=== PATIENT | female | born 1950 | race Caucasian/White ===

== ENCOUNTER → 2020-04-14 14:00 | Outpatient (BNVA) | payer MEDICARE, SELFPAY | PROVIDERS: Family Provider Physician Assistant Medical; Referring Provider Physician Assistant Medical; Visit Provider Podiatrist Foot & Ankle Surgery | DX: M79.672 Pain in left foot (principal) | CPT/HCPCS: 73630 ==

== ENCOUNTER 2020-05-27 15:25 | Outpatient (CLI) | payer MEDICARE, SELFPAY | END 2020-05-27 15:26 | disposition home or self-care (01) | LOC: SPT 15:26 | PROVIDERS: Family Provider Physician Assistant Medical; Visit Provider Podiatrist Foot & Ankle Surgery | DX: Z46.89 Encounter for fitting and adjustment of other specified devices (principal); M19.072 Primary osteoarthritis, left ankle and foot | CPT/HCPCS: 97760; L3030 ==

== ENCOUNTER 2021-09-30 09:29 | Outpatient (CLI) | payer MEDICARE, SELFPAY ==
[2021-09-30 10:06] VITALS: BMI 29.2
--- NOTE | 2021-09-30 10:07 | ECG_ITS ---
[facility] Test Date: 2021-09-30 Pat Name: Bjorn Sylvester Department: Room: Gender: Female Snap Shearer: : 1950 Requested By: Nancy Jorge Order Number: [id number] Huggins MD: Sherice Caldwell M.D. Interpretive Statements NAME OF STUDY: EXERCISE SESTAMIBI STRESS TEST INDICATION: Chest Pain Baseline blood pressure of 150/93 mm Hg, heart rate of 96 beats per minute and oxygen saturation 95%. EKG showed normal sinus rhythm, left axis deviation with isolated PVCs with normal ST-Ts. The patient exercised for 3 minutes 30 seconds on a standard Alberto protocol. Patient attained a maximum heart rate of 154 beats per minute(103% of the maximum predicted heart rate) with a blood pressure at the peak exercise of 163/88 mm Hg and oxygen saturation 94%. The EKG at the peak exercise revealed sinus tachycardia with no significant ST-T wave changes. Patient did not have any chest pain or any significant arrhythmis with the exercise. The study was terminated due to maximal effort. During the recovery phase, there were no new changes. Blood pressure at the end of the recovery phase was 148/93 mm Hg with a heart rate of 101 beats per minute and oxygen saturation 97%. Frequent isolated PVCs noted during exercise and in recovery. CONCLUSION: 1. Normal EKG response to treadmill exercise. 2. No exercise-induced chest pain or cardiac arrhythmia. 3. Decreased exercise tolerance, attained a maximum of 7 METs. Maximum VO2 of 24.5 mL/kg/min. 4. Baseline hypertension with normal response to exercise. 5. Perfusion scan will be documented separately. Electronically Signed On 10-04-2021 16:45:31 [facility] by Sherice Caldwell M.D. [email or web address]
--- NOTE | 2021-09-30 10:08 | NMCV_ITS ---
NM allison perf SPECT r/s* [id number] Bjorn Sylvester Age: 71 Gender: F : 1950 Exam Date: 09/30/2021 10:08 Ordering Phys: Nancy Jorge Technologist: PAUL Manley Exam Location: [facility] Indications: FATIGUE STRESS TEST Please see separate stress test report in [facility] for full findings IMAGE PROTOCOL Rest/Stress 1 Exercise Day Radiopharmaceutical Dose (mCi) Administration Site Administered by Rest: Tc-99m 10.7 IV PAUL Manley Sestamibi Stress:Tc-99m 32.8 IV PAUL Lorenzo Sestamibi Rest: 30-Sep-2021 60 Discovery 630 Stress: 30-Sep-2021 15 Discovery 630 Images obtained in supine and prone position. Radiopharmaceutical was injected at 95 % maximum heart rate. SPECT RESULTS Technical Quality: Excellent Raw Data Analysis: Normal Image Corrections: No attenuation or motion correction applied Summed Stress Score: 1 Summed Rest Score: 2 Summed Difference Score: 0 PERFUSION FINDINGS SPECT images demonstrate homogeneous tracer distribution throughout the myocardium. FUNCTIONAL RESULTS (calculated via Gated SPECT) Stress Image LV EF (%): 80 Stress EDV (mL):69 TID: 0.77 Stress ESV (mL):14 FUNCTIONAL FINDINGS: The left ventricle is normal in size. Transient Ischemia Dilatation of 0.77. There is normal left ventricular systolic function. The left ventricular ejection fraction is normal with a value of 80%. There is normal left ventricular wall thickening with no regional wall motion abnormality. Normal end-diastolic and end-systolic volumes. IMPRESSIONS 1. Myocardial perfusion imaging is normal. 2. Overall left ventricular systolic function is normal without regional wall motion abnormalities. 3. The left ventricular ejection fraction is hyperdynamic with a value of 80%. 4. EKG portion of the study will be reported separately. 5. No prior similar studies to compare. Sherice Caldwell MD (Electronically Signed) Final Date: 01 October 2021 18:55 S
[2021-09-30 12:46] VITALS: BP 115/76; PULSE 99
== END 2021-09-30 09:30 | disposition home or self-care (01) ==
PROVIDERS: PCP Registered Nurse; Visit Provider Registered Nurse
DX: R07.9 Chest pain, unspecified (principal); R53.83 Other fatigue; I10 Essential (primary) hypertension
CPT/HCPCS: 78452; 93017; A9500

== ENCOUNTER 2023-01-13 11:23 | Outpatient (CLI) | payer MEDICARE, SELFPAY ==
--- NOTE | 2023-01-13 11:33 | MM_ITS ---
WS: [id number] BILATERAL 3D TOMOSYNTHESIS DIGITAL SCREENING MAMMOGRAPHY WITH CAD CLINICAL INFORMATION: SCREENING HISTORY: Screening mammogram. No current complaints. COMPARISON: 2020 TECHNIQUE: Bilateral CC and MLO views. FINDINGS: The breasts are composed of heterogeneous fibroglandular density tissue, which can limit the detectio n of small underlying mass lesions. No suspicious mass, asymmetry, calcifications, or architectural d istortion. No evidence of malignancy. Punctate and lucent centered calcifications. MM/[place] [id number] IMPRESSION: BI-RADS: 2-Benign FOLLOW UP: 1 Year Follow-up Recommend return to annual screening mammography.
== END 2023-01-13 11:24 | disposition home or self-care (01) ==
LOC: RAD 11:31
PROVIDERS: PCP Registered Nurse; Visit Provider Registered Nurse
DX: Z12.31 Encounter for screening mammogram for malignant neoplasm of breast (principal)
CPT/HCPCS: 77063; 77067

== ENCOUNTER 2023-12-30 16:06 | Emergency (ER) | payer MEDICARE, SELFPAY ==
[2023-12-30 16:10] VITALS: BP 126/107; PULSE 73; RESP 16; TEMP 36.7; O2SAT 90
--- NOTE | 2023-12-30 16:22 | XRR_ITS ---
PROCEDURE INFORMATION: Exam: XR Left Shoulder Exam date and time: 12/30/2023 4:46 PM Age: 73 years old Clinical indication: Injury or trauma; Fall; Blunt trauma (contusions or hematomas); Shoulder; Left; Additional info: Fall/shoulder pain TECHNIQUE: Imaging protocol: Radiologic exam of the left shoulder. Views: 2 or more views. COMPARISON: CR XR chest 1V portable [id number] 12/30/2023 4:46 PM FINDINGS: Bones/joints: Slightly angulated comminuted fracture through the head and neck of the proximal left humerus. Mild acromioclavicular and glenohumeral spurring.. Soft tissues: Normal. XR/XR shoulder LT min 2V* [id number] IMPRESSION: Fracture of the proximal humerus.
--- NOTE | 2023-12-30 16:23 | CTR_ITS ---
PROCEDURE INFORMATION: Exam: CT Head Without Contrast Exam date and time: 12/30/2023 4:39 PM Age: 73 years old Clinical indication: Injury or trauma; Fall; Blunt trauma (contusions or hematomas); Additional info: Fall/head inj TECHNIQUE: Imaging protocol: Computed tomography of the head without contrast. Radiation optimization: All CT scans at this facility use at least one of these dose optimization techniques: automated exposure control; mA and/or kV adjustment per patient size (includes targeted exams where dose is matched to clinical indication); or iterative reconstruction. COMPARISON: CT cervical spin wo con* [id number] 12/30/2023 4:39 PM RADIATION DOSE METRICS: Total DLP (mGy-cm): 933.3 FINDINGS: Brain: No evidence of intra-axial or extra-axial hemorrhage. No mass effect or midline shift. Quiles-white differentiation is maintained. Basilar cisterns are patent. Cerebral ventricles: No hydrocephalus. Paranasal sinuses: Fluid levels in the maxillary sinuses. Moderate ethmoid sinus mucosal thickening. Mastoid air cells: The visualized mastoids and middle ears are clear. Bones: Unremarkable. No acute fracture. Soft tissues: No gross soft tissue abnormality. CT/CT head wo con* [id number] IMPRESSION: 1. No acute intracranial abnormality. 2. Maxillary sinus fluid levels compatible with sinusitis.
--- NOTE | 2023-12-30 16:23 | CTR_ITS ---
PROCEDURE INFORMATION: Exam: CT Cervical Spine Without Contrast Exam date and time: 12/30/2023 4:39 PM Age: 73 years old Clinical indication: Injury or trauma; Fall; Blunt trauma; Additional info: Fall/head inj/neck pain TECHNIQUE: Imaging protocol: Computed tomography of the cervical spine without contrast. Radiation optimization: All CT scans at this facility use at least one of these dose optimization techniques: automated exposure control; mA and/or kV adjustment per patient size (includes targeted exams where dose is matched to clinical indication); or iterative reconstruction. COMPARISON: CT head wo con* [id number] 12/30/2023 4:39 PM RADIATION DOSE METRICS: Total DLP (mGy-cm): 595.3 FINDINGS: Bones/joints: 2 mm degenerative anterolisthesis of C4 on C5.11 No evidence of acute fracture or subluxation of the cervical spine. The craniocervical junction including the atlantoaxial and atlantooccipital articulations are intact. C2-C3: No central or foraminal stenosis. C3-C4: Uncovertebral hypertrophy and facet arthrosis results in mild left-sided foraminal stenosis. No central stenosis. C4-C5: Uncovertebral hypertrophy and facet arthrosis results in mild right-sided foraminal stenosis. No central stenosis. C5-C6: Right-sided facet arthrosis without central or foraminal stenosis. C6-C7: No central or foraminal stenosis. C7-T1: No central or foraminal stenosis. Lungs: The visualized lung apices are clear. Soft tissues: No gross soft tissue abnormality. No significant prevertebral edema. No evidence of fluid collection or hematoma. CT/CT cervical spin wo con* [id number] IMPRESSION: 1. No evidence of acute fracture or subluxation of the cervical spine.
--- NOTE | 2023-12-30 16:24 | XRR_ITS ---
PROCEDURE INFORMATION: Exam: XR Chest Exam date and time: 12/30/2023 4:46 PM Age: 73 years old Clinical indication: Injury or trauma; Fall; Blunt trauma (contusions or hematomas); Additional info: Fall/trauma TECHNIQUE: Imaging protocol: Radiologic exam of the chest. Views: 1 view. COMPARISON: CR XR shoulder LT min 2V* [id number] 12/30/2023 4:46 PM FINDINGS: Lungs: Unremarkable. No consolidation. Pleural spaces: Unremarkable. No pleural effusion. No pneumothorax. Heart/Mediastinum: Unremarkable. No cardiomegaly. Bones/joints: Fracture of the proximal left humerus. XR/XR chest 1V portable [id number] IMPRESSION: No acute cardiopulmonary disease.
--- NOTE | 2023-12-30 16:25 | ED_ITS ---
Documented by User: ARIEL Cagle 12/30/23 18:40 HPI - Fall General: Chief Complaint: Fall Stated Complaint: FALL Time Seen by Provider: 12/30/23 16:11 Source: patient Mode of arrival: EMS Limitations: no limitations History of Present Illness: Patient is a 73-year-old female who presents to the emergency department via ambulance due to a trip and fall onset prior to arrival. Patient states she was walking down hallway in her house, when she must of tripped over her shoelace and fell to the ground, hitting her left shoulder and left side of her face on the ground. She notes that this broke her glasses and caused an abrasion to her left supraorbital region. She denies losing consciousness or prolonged downtime. She does state that on the way over in the ambulance she started developing neck pain, and was placed in a c-collar. She was given 100 mics of fentanyl as well as Zofran for some ongoing nausea and vomiting. Currently at bedside she states she is still nauseous and her pain is about a 5/10. She states she has pain to her head, neck, and left shoulder. No neurological deficits reported. No visual changes or other concerning signs. MD complaint: fall Onset (ago): minute(s) Fall from: standing Fall witnessed: no Place fall occurred: home Loss of consciousness: None Prolonged down time: no Symptoms prior to fall: none Context: tripped/slipped Location of injury: head, face and neck Location of injury - extremities: Left: shoulder Severity: moderate Severity scale (1-10): 5 Associated symptoms-after fall: Reports headache(s) and neck pain; Denies abdominal pain, chest pain or lightheadedness Review of Systems General: Reports: 10 or more systems reviewed and unremarkable except in HPI and below Const: Reports: other (fall); Denies: fever(s), chills or fatigue Eyes: Denies: change in vision ENMT: Denies: throat pain, ear or mastoid pain or nasal discharge Card: Denies: chest pain, palpitations, swelling of feet/ankles or lightheadedness Resp: Denies: dyspnea, productive cough or wheezing GI: Reports: nausea and vomiting; Denies: abdominal pain, diarrhea or constipation : Denies: flank pain, difficulty voiding, dysuria or urinary frequency Musc: Reports: neck pain and joint pain; Denies: back pain Skin/Breast: Denies: rash Neuro: Reports: headache(s); Denies: numbness in extremities or weakness in extremities PFSH ED PFSH: Medical History Hypertension Hypercholesteremia Surgical History H/O hysterectomy for benign disease Family History Other CAD (coronary artery disease) Cancer Hypertension Denies family history of Diabetes Social History Smoking and tobacco/nicotine status: never used tobacco/nicotine Physical Exam Const: COMMON NORMALS: no acute distress, patient oriented x3, no limitations, healthy appearing and alert GENERAL APPEARANCE: cooperative and comfortable HENMT: COMMON NORMALS: external ears normal and Normal external nose present HEAD & SCALP: no Null's sign and no raccoon eyes FACE & SINUS: abrasion on the left periorbital NOSE: Normal external nose present and Normal septum present EXTERNAL EAR: Yes external ears normal MOUTH: Normal oral and palatal mucosa present and lip normal Eye: COMMON NORMALS: Equal, round and reactive pupils present, EOMs intact bilaterally and conjunctivae normal CONJUNCTIVA: Yes conjunctivae normal PUPIL: Yes Equal, round and reactive pupils present Neck/C-Spine: COMMON NORMALS: supple GENERAL: Yes normal visual inspection CERVICAL SPINE: Yes collar present Chest: COMMONS NORMALS: normal inspection of the chest and normal palpation of entire chest wall Resp: COMMON NORMALS: normal respiratory effort, No retractions, No use of accessory muscles and clear to auscultation bilaterally AUSCULTATION: clear to auscultation bilaterally Cardio: COMMON NORMALS: regular rate, regular rhythm, S1 normal heart sound present, S2 normal heart sound present, No gallops present (Cardio), No clicks present (Cardio) and No murmurs present (Cardio) RATE: regular rate RHYTHM: regular rhythm HEART SOUNDS: S1 normal heart sound present and S2 normal heart sound present GI: COMMON NORMALS: Normal to inspection, nondistended, normoactive bowel sounds present, Soft to palpation and non-tender PALPATION: Yes Soft to palpation Back/Pelvis: COMMON NORMALS: thoracic and lumbar spine normal to inspection, no thoracic nor lumbar tenderness, thoraco-lumbar ROM normal and straight leg raise negative bilaterally Extremity: NARRATIVE EXTREMITY EXAM: Diffuse tenderness to palpation of the left shoulder joint. Elbow and wrist joints are negative. No overlying skin changes or signs of deformity. Limited range of motion with pain. Neuro: COMMON NORMALS: patient oriented x3, CN's II-XII intact bilaterally, moves all extremities, no focal motor deficits and no sensory deficits noted SENSORIUM/ORIENTATION: Yes alert Psych: COMMON NORMALS: mental status grossly normal Course Vital Signs: Vital signs: Vital Signs Temperature 98.0 F 12/30/23 16:10 Pulse Rate 73 12/30/23 16:10 Respiratory Rate 16 12/30/23 16:10 Blood Pressure 126/107 12/30/23 16:10 Pulse Oximetry 90 12/30/23 16:10 Oxygen Delivery Me thod Room Air 12/30/23 16:10 MDM - Fall Medical Decision Making Patient presented for a fall, arrived via ambulance where she received fentanyl and Zofran and route. She arrives with c-collar in place, CT neck and head were unremarkable for any acute abnormalities. Her vitals were stable on arrival and condition has remained stable throughout ED course. There was no obvious deformity to the left shoulder, however x-ray did reveal a proximal humerus fracture. There is no obvious displacement or open compounding of the fracture. She will be placed in a sling and referred to orthopedics. Hydrocodone sent for pain relief, and reasons to return discussed. Lab Data Radiology Impressions Shoulder X-Ray 12/30/23 16:22 IMPRESSION: Fracture of the proximal humerus. Cervical Spine CT 12/30/23 16:23 IMPRESSION: 1. No evidence of acute fracture or subluxation of the cervical spine. Head CT 12/30/23 16:23 IMPRESSION: 1. No acute intracranial abnormality. 2. Maxillary sinus fluid levels compatible with sinusitis. Chest X-Ray 12/30/23 16:24 IMPRESSION: No acute cardiopulmonary disease. XR interpretation done by ED provider, pending radiology final review Discharge Plan Discharge Patient Disposition: Home Clinical Impression: Left humeral fracture Qualifiers: Encounter type: initial encounter Humerus Location: proximal Fracture type: closed Fracture morphology: other fracture Fracture alignment: nondisplaced Qualified Code(s): S42.295A - Other nondisplaced fracture of upper end of left humerus, initial encounter for closed fracture Condition: Stable Prescriptions: New hydrocodone-acetaminophen 7.5-325 mg tablet 1 tab PO Q6H PRN (Reason: pain, severe) 5 Days Qty: 20 0RF No Action (DME) sole supports See Rx Instructions .Route .MEDSUPPLY Qty: 1 0RF Rx Instructions: As directed losartan-hydrochlorothiazide 100-25 mg tablet 1 tab PO DAILY diclofenac sodium 75 mg tablet,delayed release (DR/EC) 75 mg PO BID lovastatin 20 mg tablet 20 mg PO DAILY escitalopram oxalate 10 mg tablet 10 mg PO DAILY ascorbic acid (vitamin C) [Vitamin C] 500 mg capsule, extended release 500 mg PO DAILY ergocalciferol (vitamin D2) [Vitamin D2] 1,250 mcg (50,000 unit) capsule 1,250 mcg PO DAILY zinc 50 mg tablet 50 mg PO DAILY Discharge Orders: Discharge ED (Routine); Ordered 12/30/23 Ordered By: Remington Peralta Referrals: Nancy Jorge [Primary Care Provider] - Discharge Diet: Usual diet Discharge Activity: Limit activity as instructed Patient Instructions: Arm Fracture in Adults (ED) Activity Restrictions/Additional Instructions: Sling as instructed. Avoid use of the left arm. Follow-up with orthopedics next week. Hydrocodone for pain relief. Return with any new or worsening symptoms you may have. Coding Level of Care Code ED [employer] for [employer] Fwd Documented by User: Izaiah Merino DO 01/01/24 16:55 HPI - Fall General: Chief Complaint: Fall Stated Complaint: FALL Time Seen by Provider: 12/30/23 16:11 PFSH ED PFSH: Medical History Hypertension Hypercholesteremia Surgical History H/O hysterectomy for benign disease Family History Other CAD (coronary artery disease) Cancer Hypertension Denies family history of Diabetes Social History Smoking and tobacco/nicotine status: never used tobacco/nicotine Course Vital Signs: Vital signs: Vital Signs Temperature 98.0 F 12/30/23 16:10 Pulse Rate 73 12/30/23 16:10 Respiratory Rate 16 12/30/23 16:10 Blood Pressure 126/107 12/30/23 16:10 Pulse Oximetry 90 12/30/23 16:10 Oxygen Delivery Me thod Room Air 12/30/23 16:10 MDM - Fall Medical Decision Making Patient presented for a fall, arrived via ambulance where she received fentanyl and Zofran and route. She arrives with c-collar in place, CT neck and head were unremarkable for any acute abnormalities. Her vitals were stable on arrival and condition has remained stable throughout ED course. There was no obvious deformity to the left shoulder, however x-ray did reveal a proximal humerus fracture. There is no obvious displacement or open compounding of the fracture. She will be placed in a sling and referred to orthopedics. Hydrocodone sent for pain relief, and reasons to return discussed. Chart reviewed Lab Data Radiology Impressions Shoulder X-Ray 12/30/23 16:22 IMPRESSION: Fracture of the proximal humerus. Cervical Spine CT 12/30/23 16:23 IMPRESSION: 1. No evidence of acute fracture or subluxation of the cervical spine. Head CT 12/30/23 16:23 IMPRESSION: 1. No acute intracranial abnormality. 2. Maxillary sinus fluid levels compatible with sinusitis. Chest X-Ray 12/30/23 16:24 IMPRESSION: No acute cardiopulmonary disease. Discharge Plan Discharge Patient Disposition: Home Clinical Impression: Left humeral fracture Qualifiers: Encounter type: initial encounter Humerus Location: proximal Fracture type: closed Fracture morphology: other fracture Fracture alignment: nondisplaced Qualified Code(s): S42.295A - Other nondisplaced fracture of upper end of left humerus, initial encounter for closed fracture Condition: Stable Prescriptions: New hydrocodone-acetaminophen 7.5-325 mg tablet 1 tab PO Q6H PRN (Reason: pain, severe) 5 Days Qty: 20 0RF No Action (DME) sole supports See Rx Instructions .Route .MEDSUPPLY Qty: 1 0RF Rx Instructions: As directed losartan-hydrochlorothiazide 100-25 mg tablet 1 tab PO DAILY diclofenac sodium 75 mg tablet,delayed release (DR/EC) 75 mg PO BID lovastatin 20 mg tablet 20 mg PO DAILY escitalopram oxalate 10 mg tablet 10 mg PO DAILY ascorbic acid (vitamin C) [Vitamin C] 500 mg capsule, extended release 500 mg PO DAILY ergocalciferol (vitamin D2) [Vitamin D2] 1,250 mcg (50,000 unit) capsule 1,250 mcg PO DAILY zinc 50 mg tablet 50 mg PO DAILY Discharge Orders: Discharge ED (Routine); Ordered 12/30/23 Ordered By: Remington Peralta Referrals: Nancy Jorge [Primary Care Provider] - Discharge Diet: Usual diet Discharge Activity: Limit activity as instructed Patient Instructions: Arm Fracture in Adults (ED) Activity Restrictions/Additional Instructions: Sling as instructed. Avoid use of the left arm. Follow-up with orthopedics next week. Hydrocodone for pain relief. Return with any new or worsening symptoms you may have. Coding Level of Care Code ED [employer] Super[employer] for [employer]
[2023-12-30] MEDS: metoclopramide 5 mg/mL SDV 2 mL 10 MG IVP (16:52)
[2023-12-30] MEDS: morphine 4 mg/mL SDV 1 mL IVP (16:54)
--- NOTE | 2024-01-01 07:30 | DCPLANNER ---
message sent to ortho for humeral fx
== END 2023-12-30 19:22 | disposition home or self-care (01) ==
PROVIDERS: Emergency Provider Physician Assistant; PCP Registered Nurse
DX: S42.295A Other nondisplaced fracture of upper end of left humerus, initial encounter for closed fracture (principal); I10 Essential (primary) hypertension; W01.0XXA Fall on same level from slipping, tripping and stumbling without subsequent striking against object, initial encounter
CPT/HCPCS: 70450; 71045; 72125; 73030; 96374; 96375; 99285; J2270; J2765

== ENCOUNTER 2024-01-09 06:00 | Outpatient (CLI) | payer MEDICARE, SELFPAY | END 2024-01-09 23:59 | disposition home or self-care (01) | LOC: SPT 01-11 09:47 | PROVIDERS: PCP Registered Nurse; Visit Provider Student in an Organized Health Care Education/Training Program | DX: Z46.89 Encounter for fitting and adjustment of other specified devices (principal); M25.512 Pain in left shoulder | CPT/HCPCS: 99203; L3670 ==

== ENCOUNTER → 2024-01-09 12:47 | Outpatient (BNVA) | payer MEDICARE, SELFPAY | PROVIDERS: PCP Registered Nurse; Referring Provider Physician Assistant; Visit Provider Physician Assistant | DX: S42.302A Unspecified fracture of shaft of humerus, left arm, initial encounter for closed fracture (principal); W19.XXXA Unspecified fall, initial encounter | CPT/HCPCS: 73060 ==

== ENCOUNTER → 2024-01-16 14:37 | Outpatient (BNVA) | payer MEDICARE, SELFPAY | PROVIDERS: PCP Registered Nurse; Visit Provider Physician Assistant | DX: S42.302A Unspecified fracture of shaft of humerus, left arm, initial encounter for closed fracture (principal); X58.XXXA Exposure to other specified factors, initial encounter | CPT/HCPCS: 73060; 99213 ==

== ENCOUNTER → 2024-02-08 08:42 | Outpatient (BNVA) | payer MEDICARE, SELFPAY | PROVIDERS: PCP Registered Nurse; Visit Provider Physician Assistant | DX: S42.302A Unspecified fracture of shaft of humerus, left arm, initial encounter for closed fracture; X58.XXXA Exposure to other specified factors, initial encounter | CPT/HCPCS: 73060; 99213 ==

== ENCOUNTER → 2024-02-15 14:14 | Outpatient (BNVA) | payer MEDICARE, SELFPAY | PROVIDERS: PCP Registered Nurse; Visit Provider Student in an Organized Health Care Education/Training Program | DX: S42.302A Unspecified fracture of shaft of humerus, left arm, initial encounter for closed fracture; X58.XXXA Exposure to other specified factors, initial encounter | CPT/HCPCS: 73060; 99213 ==

== ENCOUNTER → 2024-04-11 09:35 | Outpatient (BNVA) | payer MEDICARE, SELFPAY | PROVIDERS: PCP Registered Nurse; Visit Provider Physician Assistant | DX: S42.302D Unspecified fracture of shaft of humerus, left arm, subsequent encounter for fracture with routine healing; X58.XXXD Exposure to other specified factors, subsequent encounter | CPT/HCPCS: 73060; 99213 ==

== ENCOUNTER → 2025-01-03 10:25 | Outpatient (BNVA) | payer MEDICARE, SELFPAY | PROVIDERS: PCP Registered Nurse; Visit Provider Physician Assistant | DX: M25.569 Pain in unspecified knee (principal); M17.0 Bilateral primary osteoarthritis of knee | CPT/HCPCS: 73560; 73565; 99213 ==

== ENCOUNTER 2025-05-06 09:28 | Outpatient (CLI) | payer MEDICARE, SELFPAY ==
--- NOTE | 2025-05-06 09:34 | MM_ITS ---
WS: [id number] BILATERAL SCREENING DIGITAL TOMOSYNTHESIS MAMMOGRAM WITH CAD HISTORY: SCREENING COMPARISON: 01/13/2023, 05/12/2021 Bilateral CC and MLO views with tomosynthesis and synthetic mammography submitted. Computer aided detection analyzed. Breast composition: The breasts are heterogeneously dense, which may obscure small masses. No suspicious masses, microcalcifications or architectural distortion. Benign calcifications within each breast. No suspicious grouping of calcifications. No mass or distortion. MM/MM scr tomosynthesis [id number] IMPRESSION: BI-RADS: 2 - Benign FOLLOW UP: 1 Year Follow-up
== END 2025-05-06 09:29 | disposition home or self-care (01) ==
LOC: RAD 09:30
PROVIDERS: PCP Registered Nurse; Visit Provider Registered Nurse
DX: Z12.31 Encounter for screening mammogram for malignant neoplasm of breast (principal); R92.333 Mammographic heterogeneous density, bilateral breasts; R92.1 Mammographic calcification found on diagnostic imaging of breast
CPT/HCPCS: 77063; 77067